=== PATIENT | male | born 1980 | race African-American/Black ===

== ENCOUNTER 2016-04-01 23:05 | Inpatient (IN) | payer OTHER ==
[~2016-04-01] VITALS: Ht 165.1 cm; Wt 61.2 kg
[2016-04-01] MEDS ORDERED: ASPIRIN 81 MG TAB.CHEW PO ONE (23:30)
[2016-04-01] MEDS ORDERED: HYDROCODONE/APAP 5/325MG TABLET. PO ONE (23:30)
[2016-04-01 23:34] LABS: BASO # 0.1 x10^3/uL (0.0-0.2); BASO % 2 % (0-3); EOS % 1 % (0-3); HEMATOCRIT 38.2 % (39.0-53.0); HEMOGLOBIN 12.7 g/dL (13.0-17.5); LYMPH # 1.1 x10^3/uL (1.0-4.8); LYMPH % 35 % (24-48); MEAN CORPUSCULAR HEMOGLOBIN 29 pg (25-35); MEAN CORPUSCULAR HGB CONC 33 g/dL (31-37); MEAN CORPUSCULAR VOLUME 88 fL (79-100); MONO % 17 % (0-9); NEUT % 45 % (31-73); PLATELET COUNT 194 x10^3/uL (140-400); RED BLOOD COUNT 4.36 x10^6/uL (4.30-5.70); RED CELL DISTRIBUTION WIDTH 15.9 % (11.5-14.5); WHITE BLOOD COUNT 3.1 x10^3/uL (4.0-11.0)
[2016-04-02 00:47] LABS: ALBUMIN 2.9 g/dL (3.4-5.0); CALCIUM 8.3 mg/dL (8.5-10.1); CREATININE 0.7 mg/dL (0.7-1.3); DIRECT BILIRUBIN 0.5 mg/dL (0.0-0.2); GFR 153.5; TOTAL PROTEIN 7.3 g/dL (6.4-8.2)
--- NOTE | 2016-04-02 01:20 | PHYS DOC ---
Past Medical History Past Medical History: Hypertension, Seizure, Other Additional Past Medical Histor: heavy etoh use Past Surgical History: No Surgical History Alcohol Use: Heavy Drug Use: None Adult General Chief Complaint Chief Complaint: CHEST PAIN HPI HPI 35-year-old male presenting to the emergency department today with chest pain intermittently for approximately 3 weeks associated with nausea vomiting. 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 He denies any abdominal pain currently. He denies shortness of breath. His chest pain is a tightness that is nonradiating and without alleviating factors. ROS negative for abdominal pain. Positive for nausea vomiting. Negative for diarrhea. Negative for fevers or chills.All other review of systems is negative unless otherwise noted in history of present illness. Review of Systems Review of Systems See above. Current Medications Current Medications Current Medications Medications (Trade) Dose Ordered Sig/Hernán Start Time Stop Time Status Last Admin Dose Admin Acetaminophen/ Hydrocodone Bitart (Lortab 5/325) 2 tab 1X ONCE 04/01/16 23:30 04/01/16 23:31 DC 04/01/16 23:32 2 TAB Aspirin (Children'S Aspirin) 324 mg 1X ONCE 04/01/16 23:30 04/01/16 23:31 DC 04/01/16 23:31 324 MG Allergies Allergies Allergies Coded Allergies Type Severity Reaction Last Updated Verified No Known Drug Allergies 07/04/15 No Physical Exam Physical Exam Constitutional: Well developed, well nourished, no acute distress, non-toxic appearance. HENT: Normocephalic, atraumatic, bilateral external ears normal, oropharynx moist, no oral exudates, nose normal. Eyes: PERRLA, EOMI, conjunctiva normal, no discharge. Neck: Normal range of motion, no tenderness, supple, no stridor. [] Cardiovascular:Heart rate regular rhythm, no murmur [] Lungs & Thorax: Bilateral breath sounds clear to auscultation Abdomen: Soft nontender abdomen without rebound tenderness or guarding present. Negative McBurneys point. Negative Dudley sign. No ecchymosis present. Skin: Warm, dry, no erythema, no rash. Back: No tenderness, no CVA tenderness. [] Extremities: No tenderness, no cyanosis, no clubbing, ROM intact, no edema. [] Neurologic: Alert and oriented X 3, normal motor function, normal sensory function, no focal deficits noted. [] Psychologic: Affect normal, judgement normal, mood normal. Current Patient Data Vital Signs Vital Signs Date Time Temp Pulse Resp B/P Pulse Ox O2 Delivery O2 Flow Rate FiO2 04/01/16 23:32 18 04/01/16 23:17 97.7 89 154/115 97 Room Air 97.7 Lab Values Laboratory Tests Test 04/01/16 23:20 2 00:20 White Blood Count 3.1x10^3/uL (4.0-11.0) L Red Blood Count 4.36x10^6/uL (4.30-5.70) Hemoglobin 12.7g/dL (13.0-17.5) L Hematocrit 38.2% (39.0-53.0) L Mean Corpuscular Volume 88fL (79-100) Mean Corpuscular Hemoglobin 29pg (25-35) Mean Corpuscular Hemoglobin Concent 33g/dL (31-37) Red Cell Distribution Width 15.9% (11.5-14.5) H Platelet Count 194x10^3/uL (140-400) Neutrophils (%) (Auto) 45% (31-73) Lymphocytes (%) (Auto) 35% (24-48) Monocytes (%) (Auto) 17% (0-9) H Eosinophils (%) (Auto) 1% (0-3) Basophils (%) (Auto) 2% (0-3) Neutrophils # (Auto) 1.4x10^3uL (1.8-7.7) L Lymphocytes # (Auto) 1.1x10^3/uL (1.0-4.8) Monocytes # (Auto) 0.5x10^3/uL (0.0-1.1) Eosinophils # (Auto) 0.0x10^3/uL (0.0-0.7) Basophils # (Auto) 0.1x10^3/uL (0.0-0.2) Sodium Level 141mmol/L (136-145) Potassium Level 3.0mmol/L (3.5-5.1) L Chloride Level 103mmol/L (98-107) Carbon Dioxide Level 28mmol/L (21-32) Anion Gap 10 (6-14) Blood Urea Nitrogen 9mg/dL (8-26) Creatinine 0.7mg/dL (0.7-1.3) Estimated GFR (Cockcroft-Gault) 153.5 Glucose Level 91mg/dL (70-99) Calcium Level 8.3mg/dL (8.5-10.1) L Total Bilirubin 1.0mg/dL (0.2-1.0) Direct Bilirubin 0.5mg/dL (0.0-0.2) H Aspartate Amino Transferase (AST) 416U/L (15-37) H Alanine Aminotransferase (ALT) 163U/L (16-63) H Alkaline Phosphatase 204U/L (46-116) H Troponin I Quantitative < 0.017ng/mL (0.000-0.055) HS-Ltj-Y-Type Natriuretic Peptide 150pg/mL (0-124) H Total Protein 7.3g/dL (6.4-8.2) Albumin 2.9g/dL (3.4-5.0) L Lipase 536U/L (73-393) H Laboratory Tests 04/01/16 23:20 Laboratory Tests 04/02/16 00:20 EKG EKG [] EKG shows sinus rhythm with a regular rate. [place] normal. Intervals within normal limits. ST segments congruent. Radiology/Procedures Radiology/Procedures [] Course & Med Decision Making Course & Med Decision Making Pertinent Labs and Imaging studies reviewed. (See chart for details) [] 35-year-old male presenting to the emergency department with chest pain for 3 weeks with nausea and vomiting. On examination the patient was afebrile with mild hypertension. Otherwise vitals unremarkable. Physical exam showed nontender abdomen. EKG unremarkable. Chest x-ray showed no obvious infiltrate or effusion. Blood work obtained which showed mild leukopenia. Hemoglobin mildly anemic. Chemistry panel showed elevation in LFTs with mild bili elevation. Troponin negative. Lipase elevated. The patient's pain was controlled with IV medications. He was placed nothing by mouth and admitted to our hospital for IV fluids, further evaluation, workup and care. Dragon Disclaimer Dragon Disclaimer This electronic medical record was generated, in whole or in part, using a voice recognition dictation system. Departure Departure Impression: Primary Impression: Acute alcoholic pancreatitis Disposition: ADMITTED INPATIENT Admitting Physician: Puneet Patrick Condition: IMPROVED Referrals: UNKNOWN PCP NAME (PCP) Scripts No Active Prescriptions or Reported Meds NIKHIL PARIKH MD Apr 02, 2016 01:20
[2016-04-02] MEDS ORDERED: CONTRAST GIVEN MC PRN (01:30)
[2016-04-02] MEDS ORDERED: HYDROMORPHONE 2 MG/ML VIAL. IV PRN (01:30)
[2016-04-02] MEDS ORDERED: ONDANSETRON PF 4 MG/2 ML VIAL. IV PRN (01:30)
[2016-04-02] MEDS ORDERED: IOHEXOL 300 MG/ML 75 ML VIAL IV ONE (01:30)
[2016-04-02] MEDS ORDERED: MORPHINE SULFATE 2 MG/ML DISP.SYRIN. IV PRN (01:30)
[2016-04-02] MEDS ORDERED: POTASSIUM CHLORIDE 20 MEQ TABLET.ER. PO ONE (01:45)
[2016-04-02] MEDS ORDERED: ONDANSETRON PF 4 MG/2 ML VIAL. IV ONE (01:45)
[2016-04-02] MEDS: IV NORMAL SALINE 1000ML BAG 1,000 ML IV SCH ×3 (02:08→17:30)
--- NOTE | 2016-04-02 02:18 | RAD ---
INDICATION: Nausea and vomiting COMPARISON: None TECHNIQUE: Axial CT images obtained through the abdomen and pelvis. Intravenous contrast was utilized. One or more of the following individualized dose reduction techniques were utilized for this examination: 1. Automated exposure control; 2. Adjustment of the mA and/or kV according to patient size; 3. Use of iterative reconstruction technique. FINDINGS: Abdominal aorta not aneurysmal. No intrahepatic bile duct dilation. Liver is low attenuation. No peripancreatic edema. Spleen unremarkable. Calcified granulomas. No hydronephrosis. No definite evidence of small bowel obstruction. Bladder unremarkable within limits of CT. The appendix does not appear grossly inflamed IMPRESSION: No definite evidence of bowel obstruction. The liver is very low attenuation. Nonspecific but can be seen with fatty infiltration. Other causes such as hepatitis also in differential. The appendix does not appear grossly inflamed but there is a probable appendicolith. Electronically signed by: Cristóbal Lemon (Apr 02, 2016 02:16:06)
[2016-04-02 03:10] VITALS: BP 137/106
[2016-04-02] MEDS ORDERED: mobic (04:10)
--- NOTE | 2016-04-02 06:54 | EKG ---
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
[2016-04-02 07:05] VITALS: BP 136/101
--- NOTE | 2016-04-02 07:48 | RAD ---
Portable chest, 04/01/2016: History: Chest pain and vomiting The heart size and pulmonary vascularity are normal. No pulmonary infiltrates are seen. There is no evidence of pleural fluid. IMPRESSION: No acute cardiopulmonary abnormality is detected.
--- NOTE | 2016-04-02 08:56 | PDOC2 ---
GI CONSULT Reason For Consult: Pancreatitis HPI: HPI: 35 y/o male admitted through the ER reporting 3 weeks of chest pain radiating to his left clavicle w/ "a lot" of n/v. Labs significant for WBC 3.1, Hgb 12.7 , lipase 536, total bili 1, direct bili 0.5, AST 416, ALT 163, Alk Phos 204. CT A/P showed no intrahepatic bile duct dilation w/ low attenuation of the liver , no peripancreatic edema, and probable appendicolith. He was admitted and kept NPO. Currently pain is rated 7/10 (compared to 9/10 on arrival). No nausea. He is in bed with a woman who he says is his friend. Previous admission in 07/2015 for alcohol withdrawal and seizure; tested positive for cocaine at that time and LFTs were elevated. Continues to drink about 1 pint of vodka daily. Now denies drug and tobacco use. Occasional heartburn treated w/ Tums. No diarrhea, constipation, hematemesis, melena, or hematochezia. No previous EGD or colonoscopy. PMH: PMH: substance abuse - alcohol, drugs w/ h/o alcohol withdrawal seizure, HTN FH: Family History: No pertinent hx (denies pancreatitis, GI cancers) Social History: ALCOHOL: heavy (1 pint vodka daily) Drugs: Other (currently denies, previously + for cocaine) ROS: GEN: Denies fevers, chills, sweats HEENT: Denies blurred vision, sore throat CV: +chest pain RESP: Denies shortness of air, cough GI: Per HPI : Denies hematuria, dysuria ENDO: Denies weight changes NEURO: Denies confusion, dizziness MSK: Denies weakness, joint pain/swelling SKIN: Denies jaundice, pruritus VItals: Vitals: Vital Signs Date Time Temp Pulse Resp B/P Pulse Ox O2 Delivery O2 Flow Rate FiO2 04/02/16 07:05 97.7 88 17 136/101 97 Room Air 97.7 Labs: Labs: Laboratory Tests Test 04/01/16 23:20 04/02/16 00:20 White Blood Count 3.1x10^3/uL (4.0-11.0) Red Blood Count 4.36x10^6/uL (4.30-5.70) Hemoglobin 12.7g/dL (13.0-17.5) Hematocrit 38.2% (39.0-53.0) Mean Corpuscular Volume 88fL (79-100) Mean Corpuscular Hemoglobin 29pg (25-35) Mean Corpuscular Hemoglobin Concent 33g/dL (31-37) Red Cell Distribution Width 15.9% (11.5-14.5) Platelet Count 194x10^3/uL (140-400) Neutrophils (%) (Auto) 45% (31-73) Lymphocytes (%) (Auto) 35% (24-48) Monocytes (%) (Auto) 17% (0-9) Eosinophils (%) (Auto) 1% (0-3) Basophils (%) (Auto) 2% (0-3) Neutrophils # (Auto) 1.4x10^3uL (1.8-7.7) Lymphocytes # (Auto) 1.1x10^3/uL (1.0-4.8) Monocytes # (Auto) 0.5x10^3/uL (0.0-1.1) Eosinophils # (Auto) 0.0x10^3/uL (0.0-0.7) Basophils # (Auto) 0.1x10^3/uL (0.0-0.2) Sodium Level 141mmol/L (136-145) Potassium Level 3.0mmol/L (3.5-5.1) Chloride Level 103mmol/L (98-107) Carbon Dioxide Level 28mmol/L (21-32) Anion Gap 10 (6-14) Blood Urea Nitrogen 9mg/dL (8-26) Creatinine 0.7mg/dL (0.7-1.3) Estimated GFR (Cockcroft-Gault) 153.5 Glucose Level 91mg/dL (70-99) Calcium Level 8.3mg/dL (8.5-10.1) Total Bilirubin 1.0mg/dL (0.2-1.0) Direct Bilirubin 0.5mg/dL (0.0-0.2) Aspartate Amino Transf (AST/SGOT) 416U/L (15-37) Alanine Aminotransferase (ALT/SGPT) 163U/L (16-63) Alkaline Phosphatase 204U/L (46-116) Troponin I Quantitative < 0.017ng/mL (0.000-0.055) NA-Kny-M-Type Natriuretic Peptide 150pg/mL (0-124) Total Protein 7.3g/dL (6.4-8.2) Albumin 2.9g/dL (3.4-5.0) Lipase 536U/L (73-393) Allergies: Coded Allergies: No Known Drug Allergies (Unverified , 07/04/15) Medications: Current Medications Medications (Trade) Dose Ordered Sig/Hernán Route PRN Reason Start Time Stop Time Status Last Admin Dose Admin Aspirin (Children'S Aspirin) 324 mg 1X ONCE PO 04/01/16 23:30 04/01/16 23:31 DC 04/01/16 23:31 Acetaminophen/ Hydrocodone Bitart (Lortab 5325) 2 tab 1X ONCE PO 04/01/16 23:30 04/01/16 23:31 DC 04/01/16 23:32 Iohexol (Omnipaque 300 Mg/ml) 75 ml 1X ONCE IV 04/02/16 01:30 04/02/16 01:31 DC 04/02/16 01:19 Morphine Sulfate 2 mg 2 mg PRN Q2HR PRN IV PAIN 04/02/16 01:30 04/03/16 01:29 04/02/16 02:09 Sodium Chloride (Iv Sodium Chloride 0.9% 1000ml Bag) 1,000 ml @ 125 mls/hr Q8H IV 04/02/16 01:30 04/03/16 01:29 04/02/16 02:08 Hydromorphone HCl (Dilaudid) 0.5 mg PRN Q1HR PRN IV SEVERE PAIN 04/02/16 01:30 04/02/16 03:21 Ondansetron HCl (Zofran) 4 mg 1X ONCE IV 04/02/16 01:45 04/02/16 01:46 DC 04/02/16 02:08 Potassium Chloride (Klor-Con) 40 meq 1X ONCE PO 04/02/16 01:45 04/02/16 01:46 DC 04/02/16 02:09 Imaging: Imaging: CT A/P w/ IV contrast IMPRESSION: No definite evidence of bowel obstruction. The liver is very low attenuation. Nonspecific but can be seen with fatty infiltration. Other causes such as hepatitis also in differential. The appendix does not appear grossly inflamed but there is a probable appendicolith. CXR 04/02/16 IMPRESSION: No acute cardiopulmonary abnormality is detected. PE: GEN: NAD HEENT: Atraumatic, PERRL LUNGS: CTAB anteriorly HEART: RRR ABD: NABS, +epigastric tenderness EXTREMITY: No edema SKIN: No rashes, no jaundice NEURO/PSYCH: A & O 3 A/P: A/P: Elevated lipase, epigastric/chest pain, n/v Elevated LFTs Heartburn -occasional, treated w/ antacids (Tums) Substance abuse -h/o alcohol withdrawal seizure -- Will check abd US and hepatic panel, although symptoms and abnormal labs are likely due to alcoholic hepatitis/pancreatitis. Continue medical therapy. JOSE COLEMAN Apr 02, 2016 08:56
[2016-04-02 10:36] VITALS: BP 134/95
--- NOTE | 2016-04-02 11:48 | RAD ---
Abdominal ultrasound, 04/02/2016: History: Epigastric pain, elevated lipase The gallbladder is at the upper limits of normal in size. A small amount of echogenic material is present posteriorly in the gallbladder without posterior acoustic shadowing. The apparent is that of sludge. No gallstones are identified. The gallbladder rush are not thickened. No bile duct dilatation is seen. The liver demonstrates increased echogenicity compatible with fatty change. No hepatic mass is evident. No pancreatic abnormality is detected. The spleen is of normal size. It contains a coarse calcification. The kidneys are unremarkable. The abdominal aorta and inferior vena cava show no abnormality. No free fluid is evident in the abdomen. IMPRESSION: 1. Gallbladder sludge without evidence of cholelithiasis. 2. Hepatic steatosis
[2016-04-02 14:38] VITALS: BP 146/103
[2016-04-02] MEDS ORDERED: POTASSIUM CHLORIDE 20MEQ 50 ML IV SCH (16:30)
[2016-04-02] MEDS: CHLORDIAZEPOXIDE HCL 25 MG CAPSULE PO SCH ×2 (17:02→23:02)
[2016-04-02] MEDS: PANTOPRAZOLE IV PUSH 40 MG VIAL. IVP SCH (17:02)
[2016-04-02] MEDS: MVI, ADULT NO.4 WITH VIT K 10 ML, FOLIC ACID 1 MG, THIAMINE 100 MG in IV NORMAL SALINE ... IV SCH ×4 (17:03)
[2016-04-02] MEDS: POTASSIUM CHLORIDE 10MEQ 100 ML IV SCH ×6 (17:03→23:44)
[2016-04-02] MEDS ORDERED: CYCL10TA2 PO (17:18)
[2016-04-02] MEDS ORDERED: CITA20TA9 PO (17:18)
--- NOTE | 2016-04-02 18:34 | HP ---
ADMIT DATE: 04/02/2016 CHIEF COMPLAINT: Abdominal pain, chest pain. HISTORY OF PRESENT ILLNESS: The patient is a 35-year-old -Citizen Of [place] gentleman who unfortunately drinks chronically admitting to 1 pint of vodka a day. He presented to the Emergency Room with a 2-3 week history of upper abdominal pain as well as chest pain associated with nausea and vomiting. He denies any shortness of breath or cough. Pain is substernally, not radiating to either side. Does have a history of GERD for which he is taking Tums p.r.n. Denies any hematemesis. Denies any diarrhea. In the Emergency Room, he was found with mildly elevated lipase level and was therefore admitted with alcoholic pancreatitis. PAST MEDICAL HISTORY: Recurrent alcohol-induced hepatitis, history of alcoholic withdrawal seizures, multi-substance abuse. FAMILY HISTORY: Brother also alcoholic. SOCIAL HISTORY: Had been living in [place], moved back here with friends, not working, multi-substance abuse including tobacco and other drugs. ALLERGIES: No known drug allergies. MEDICATIONS AT HOME: None. REVIEW OF SYSTEMS: Positive for pain as per HPI. Currently, chest pain is actually fairly well controlled. Denies any other symptoms. PHYSICAL EXAMINATION: VITAL SIGNS: From today show a blood pressure of 146/103, heart rate at 81, respiratory rate at 17. He is afebrile. GENERAL: This is a slim 35-year-old -Citizen [place] gentleman, alert and oriented, in no acute distress. HEENT: Shows no scleral icterus. NECK: Supple. LUNGS: Clear to auscultation bilaterally. HEART: Regular rate and rhythm. ABDOMEN: Has mild tenderness to palpation in the epigastrium to the left upper quadrant. EXTREMITIES: Show no edema. SKIN: Warm, soft and dry without any rash. LABORATORY DATA: CBC with a WBC of 3.1, hemoglobin of 12.7, platelets of 194. Chemistries with a BUN and creatinine of 9 and 0.7, potassium of 3.0. LFT is abnormal with AST of 416, ALT 163, alkaline phosphatase at 204, albumin 2.9. Tox screen positive for cocaine. Alcohol level at 359. ASSESSMENT AND PLAN: The patient is a 35-year-old -Citizen [place] alcoholic presenting with alcoholic hepatitis and pancreatitis. We will admit for symptom control. He will be placed on bowel rest for the time being. We will continue IV fluids. Symptom control via IV. Try to minimize IV narcotics, however. I had a discussion with the patient about ongoing drinking. This clearly is not news to him. I advised him that abstinence is the only way to go. Does smoke significant amount of tobacco as well. We will place on patch. Prophylaxis will be instituted with PPI and Lovenox. Hypokalemia, most likely related to nausea and vomiting. We will repeat IV. For active alcohol abuse and history of alcoholic seizures, we will start CIWA protocol. MIKE NARANJO MD DR: UR/nts JOB#: [id number] / [id number] JEANNINE
[2016-04-02 19:00] VITALS: BP 168/123
[2016-04-02] MEDS: MORPHINE SULFATE 2 MG/ML DISP.SYRIN. IV PRN ×2 (20:45→23:03)
[2016-04-02 22:58] VITALS: BP 183/137
[2016-04-02] MEDS ORDERED: LORAZEPAM 2 MG/ML VIAL IV PRN (23:00)
[2016-04-02] MEDS ORDERED: CALCIUM CARBONATE 500 MG TAB.CHEW PO PRN (23:00)
[2016-04-02] MEDS ORDERED: LIDO:MAALOX:DONNATAL 1:1:1 15 ML SINGLE DOSE SWSW ONE (23:00)
[2016-04-02] MEDS: LABETALOL 20 MG/4 ML DISP.SYRIN. IVP PRN (23:02)
[2016-04-03] VITALS (7 sets, daily range): BP systolic 106–163; BP diastolic 75–120
[2016-04-03 00:10] LABS: HEP A IGM ABDY Negative (Negative)
[2016-04-03] MEDS: POTASSIUM CHLORIDE 10MEQ 100 ML IV SCH ×2 (00:42→01:45)
[2016-04-03] MEDS: POTASSIUM CHLORIDE 30 MEQ in IV 1/2 NORMAL SALINE 1,000 ML IV SCH ×2 (00:43→14:32)
[2016-04-03] MEDS: CHLORDIAZEPOXIDE HCL 25 MG CAPSULE PO SCH ×4 (04:07→22:30)
[2016-04-03] MEDS: LABETALOL 20 MG/4 ML DISP.SYRIN. IVP PRN (04:08)
[2016-04-03 06:00] LABS: BASO % 1 % (0-3); EOS % 2 % (0-3); HEMATOCRIT 35.9 % (39.0-53.0); LYMPH # 0.7 x10^3/uL (1.0-4.8); LYMPH % 20 % (24-48); MEAN CORPUSCULAR HEMOGLOBIN 30 pg (25-35); MEAN CORPUSCULAR HGB CONC 34 g/dL (31-37); MEAN CORPUSCULAR VOLUME 88 fL (79-100); MONO % 23 % (0-9); NEUT % 54 % (31-73); PLATELET COUNT 179 x10^3/uL (140-400); RED BLOOD COUNT 4.07 x10^6/uL (4.30-5.70); RED CELL DISTRIBUTION WIDTH 15.2 % (11.5-14.5); WHITE BLOOD COUNT 3.2 x10^3/uL (4.0-11.0)
[2016-04-03 06:19] LABS: CALCIUM 7.6 mg/dL (8.5-10.1); CREATININE 0.6 mg/dL (0.7-1.3); GFR 183.4; POTASSIUM 3.4 mmol/L (3.5-5.1)
[2016-04-03 06:26] LABS: ALBUMIN 2.8 g/dL (3.4-5.0); DIRECT BILIRUBIN 0.8 mg/dL (0.0-0.2); TOTAL BILIRUBIN 1.9 mg/dL (0.2-1.0); TOTAL PROTEIN 6.8 g/dL (6.4-8.2)
[2016-04-03 07:01] LABS: PLT ESTIMATE ADEQUATE (ADEQUATE)
[2016-04-03] MEDS: PANTOPRAZOLE IV PUSH 40 MG VIAL. IVP SCH (08:44)
[2016-04-03] MEDS: MVI, ADULT NO.4 WITH VIT K 10 ML, FOLIC ACID 1 MG, THIAMINE 100 MG in IV NORMAL SALINE ... IV SCH ×4 (08:48)
--- NOTE | 2016-04-03 08:51 | PDOC ---
PROGRESS NOTES Chief Complaint Chief Complaint EtOH pancreatitis ASSESSMENT AND PLAN: 1. Pancreatitis: EtOH induced. lipase normalizing, pain much improved. cautiously advance diet 2. Hepatitis: EtOH induced. improved by labs. monitor 3. Gastritis: EtOH induced. on PPI, switch to PO 4. Hypokalemia: improved. continue IV repletion 5. Etoh abuse: banana bag 6. ETOH W/D: Librium protocol Prophylaxis: lovenox Does smoke significant amount of tobacco as well. We will place on patch. Prophylaxis will be instituted with PPI and Lovenox. Hypokalemia, most likely related to nausea and vomiting. We will repeat IV. For active alcohol abuse and history of alcoholic seizures, we will start CIWA protocol. Vitals Vitals Vital Signs Date Time Temp Pulse Resp B/P Pulse Ox O2 Delivery O2 Flow Rate FiO2 04/03/16 07:00 97.5 67 18 135/101 96 Room Air 97.5 Physical Exam Physical Exam hand tremors General: Alert, Cooperative, No acute distress Heart: Regular rate Lungs: Clear Abdomen: Normal bowel sounds Extremities: No edema Skin: No rashes Labs LABS Laboratory Tests Test 04/03/16 05:10 White Blood Count 3.2x10^3/uL (4.0-11.0) Red Blood Count 4.07x10^6/uL (4.30-5.70) Hemoglobin 12.0g/dL (13.0-17.5) Hematocrit 35.9% (39.0-53.0) Mean Corpuscular Volume 88fL (79-100) Mean Corpuscular Hemoglobin 30pg (25-35) Mean Corpuscular Hemoglobin Concent 34g/dL (31-37) Red Cell Distribution Width 15.2% (11.5-14.5) Platelet Count 179x10^3/uL (140-400) Neutrophils (%) (Auto) 54% (31-73) Lymphocytes (%) (Auto) 20% (24-48) Monocytes (%) (Auto) 23% (0-9) Eosinophils (%) (Auto) 2% (0-3) Basophils (%) (Auto) 1% (0-3) Neutrophils # (Auto) 1.7x10^3uL (1.8-7.7) Lymphocytes # (Auto) 0.7x10^3/uL (1.0-4.8) Monocytes # (Auto) 0.8x10^3/uL (0.0-1.1) Eosinophils # (Auto) 0.1x10^3/uL (0.0-0.7) Basophils # (Auto) 0.0x10^3/uL (0.0-0.2) Segmented Neutrophils % 61% (35-66) Lymphocytes % 25% (24-48) Monocytes % 14% (0-10) Platelet Estimate Adequate (ADEQUATE) Sodium Level 135mmol/L (136-145) Potassium Level 3.4mmol/L (3.5-5.1) Chloride Level 98mmol/L (98-107) Carbon Dioxide Level 28mmol/L (21-32) Anion Gap 9 (6-14) Blood Urea Nitrogen 4mg/dL (8-26) Creatinine 0.6mg/dL (0.7-1.3) Estimated GFR (Cockcroft-Gault) 183.4 Glucose Level 87mg/dL (70-99) Calcium Level 7.6mg/dL (8.5-10.1) Total Bilirubin 1.9mg/dL (0.2-1.0) Direct Bilirubin 0.8mg/dL (0.0-0.2) Aspartate Amino Transf (AST/SGOT) 298U/L (15-37) Alanine Aminotransferase (ALT/SGPT) 129U/L (16-63) Alkaline Phosphatase 194U/L (46-116) Total Protein 6.8g/dL (6.4-8.2) Albumin 2.8g/dL (3.4-5.0) Review of Systems Review of Systems hung. no abd pain or nausea Comment Labs Laboratory Tests Test 04/01/16 23:20 04/02/16 00:20 04/03/16 05:10 White Blood Count 3.1x10^3/uL (4.0-11.0) 3.2x10^3/uL (4.0-11.0) Red Blood Count 4.36x10^6/uL (4.30-5.70) 4.07x10^6/uL (4.30-5.70) Hemoglobin 12.7g/dL (13.0-17.5) 12.0g/dL (13.0-17.5) Hematocrit 38.2% (39.0-53.0) 35.9% (39.0-53.0) Mean Corpuscular Volume 88fL (79-100) 88fL (79-100) Mean Corpuscular Hemoglobin 29pg (25-35) 30pg (25-35) Mean Corpuscular Hemoglobin Concent 33g/dL (31-37) 34g/dL (31-37) Red Cell Distribution Width 15.9% (11.5-14.5) 15.2% (11.5-14.5) Platelet Count 194x10^3/uL (140-400) 179x10^3/uL (140-400) Neutrophils (%) (Auto) 45% (31-73) 54% (31-73) Lymphocytes (%) (Auto) 35% (24-48) 20% (24-48) Monocytes (%) (Auto) 17% (0-9) 23% (0-9) Eosinophils (%) (Auto) 1% (0-3) 2% (0-3) Basophils (%) (Auto) 2% (0-3) 1% (0-3) Neutrophils # (Auto) 1.4x10^3uL (1.8-7.7) 1.7x10^3uL (1.8-7.7) Lymphocytes # (Auto) 1.1x10^3/uL (1.0-4.8) 0.7x10^3/uL (1.0-4.8) Monocytes # (Auto) 0.5x10^3/uL (0.0-1.1) 0.8x10^3/uL (0.0-1.1) Eosinophils # (Auto) 0.0x10^3/uL (0.0-0.7) 0.1x10^3/uL (0.0-0.7) Basophils # (Auto) 0.1x10^3/uL (0.0-0.2) 0.0x10^3/uL (0.0-0.2) Sodium Level 141mmol/L (136-145) 135mmol/L (136-145) Potassium Level 3.0mmol/L (3.5-5.1) 3.4mmol/L (3.5-5.1) Chloride Level 103mmol/L (98-107) 98mmol/L (98-107) Carbon Dioxide Level 28mmol/L (21-32) 28mmol/L (21-32) Anion Gap 10 (6-14) 9 (6-14) Blood Urea Nitrogen 9mg/dL (8-26) 4mg/dL (8-26) Creatinine 0.7mg/dL (0.7-1.3) 0.6mg/dL (0.7-1.3) Estimated GFR (Cockcroft-Gault) 153.5 183.4 Glucose Level 91mg/dL (70-99) 87mg/dL (70-99) Calcium Level 8.3mg/dL (8.5-10.1) 7.6mg/dL (8.5-10.1) Total Bilirubin 1.0mg/dL (0.2-1.0) 1.9mg/dL (0.2-1.0) Direct Bilirubin 0.5mg/dL (0.0-0.2) 0.8mg/dL (0.0-0.2) Aspartate Amino Transf (AST/SGOT) 416U/L (15-37) 298U/L (15-37) Alanine Aminotransferase (ALT/SGPT) 163U/L (16-63) 129U/L (16-63) Alkaline Phosphatase 204U/L (46-116) 194U/L (46-116) Troponin I Quantitative < 0.017ng/mL (0.000-0.055) BH-Ree-A-Type Natriuretic Peptide 150pg/mL (0-124) Total Protein 7.3g/dL (6.4-8.2) 6.8g/dL (6.4-8.2) Albumin 2.9g/dL (3.4-5.0) 2.8g/dL (3.4-5.0) Lipase 536U/L (73-393) Hepatitis A IgM Antibody Negative (Negative) Hepatitis B Surface Antigen Negative (Negative) Hepatitis B Core IgM Antibody Negative (Negative) Hepatitis C Antibody <0.1s/co ratio (0.0-0.9) Segmented Neutrophils % 61% (35-66) Lymphocytes % 25% (24-48) Monocytes % 14% (0-10) Platelet Estimate Adequate (ADEQUATE) Laboratory Tests Test 04/03/16 05:10 White Blood Count 3.2x10^3/uL (4.0-11.0) Red Blood Count 4.07x10^6/uL (4.30-5.70) Hemoglobin 12.0g/dL (13.0-17.5) Hematocrit 35.9% (39.0-53.0) Mean Corpuscular Volume 88fL (79-100) Mean Corpuscular Hemoglobin 30pg (25-35) Mean Corpuscular Hemoglobin Concent 34g/dL (31-37) Red Cell Distribution Width 15.2% (11.5-14.5) Platelet Count 179x10^3/uL (140-400) Neutrophils (%) (Auto) 54% (31-73) Lymphocytes (%) (Auto) 20% (24-48) Monocytes (%) (Auto) 23% (0-9) Eosinophils (%) (Auto) 2% (0-3) Basophils (%) (Auto) 1% (0-3) Neutrophils # (Auto) 1.7x10^3uL (1.8-7.7) Lymphocytes # (Auto) 0.7x10^3/uL (1.0-4.8) Monocytes # (Auto) 0.8x10^3/uL (0.0-1.1) Eosinophils # (Auto) 0.1x10^3/uL (0.0-0.7) Basophils # (Auto) 0.0x10^3/uL (0.0-0.2) Segmented Neutrophils % 61% (35-66) Lymphocytes % 25% (24-48) Monocytes % 14% (0-10) Platelet Estimate Adequate (ADEQUATE) Sodium Level 135mmol/L (136-145) Potassium Level 3.4mmol/L (3.5-5.1) Chloride Level 98mmol/L (98-107) Carbon Dioxide Level 28mmol/L (21-32) Anion Gap 9 (6-14) Blood Urea Nitrogen 4mg/dL (8-26) Creatinine 0.6mg/dL (0.7-1.3) Estimated GFR (Cockcroft-Gault) 183.4 Glucose Level 87mg/dL (70-99) Calcium Level 7.6mg/dL (8.5-10.1) Total Bilirubin 1.9mg/dL (0.2-1.0) Direct Bilirubin 0.8mg/dL (0.0-0.2) Aspartate Amino Transf (AST/SGOT) 298U/L (15-37) Alanine Aminotransferase (ALT/SGPT) 129U/L (16-63) Alkaline Phosphatase 194U/L (46-116) Total Protein 6.8g/dL (6.4-8.2) Albumin 2.8g/dL (3.4-5.0) Vitals/I & O Vital Sign - Last 24 Hours 04/02/16 04/02/16 04/02/16 04/02/16 10:36 14:38 19:00 20:00 Temp 97.7 98.1 99.1 97.7 98.1 99.1 Pulse 84 81 85 Resp 17 17 20 B/P 134/95 146/103 168/123 Pulse Ox 95 97 97 O2 Delivery Room Air Room Air Room Air Room Air 04/02/16 04/02/16 04/02/16 04/03/16 20:45 22:58 23:02 03:00 Temp 98.1 97.9 98.1 97.9 Pulse 87 87 78 Resp 18 24 22 B/P 183/137 183/137 163/120 Pulse Ox 96 97 O2 Delivery Room Air Room Air 04/03/16 04/03/16 04/03/16 04:08 06:09 07:00 Temp 97.5 97.5 Pulse 78 67 Resp 18 B/P 163/120 139/106 135/101 Pulse Ox 96 O2 Delivery Room Air Intake and Output 04/02/16 04/02/16 04/03/16 15:00 23:00 07:00 Intake Total 0 ml 0 ml Output Total 500 ml 850 ml 1600 ml Balance -500 ml -850 ml -1600 ml MIKE NARANJO MD Apr 03, 2016 08:50
[2016-04-03] MEDS ORDERED: ACETAMINOPHEN 325 MG TABLET. PO PRN (09:45)
[2016-04-03] MEDS ORDERED: CALCIUM CARBONATE 500 MG TAB.CHEW PO PRN (12:15)
--- NOTE | 2016-04-03 12:16 | PDOC ---
Subjective: Subjective: Feeling better. Hungry. Had some chest pain radiating to jaw overnight - felt a bit like reflux and was improved w/ Tums and GI cocktail. Objective: Objective: Per RN - CP overnight, no c/o abd pain today. Vital Signs: Vital Signs Date Time Temp Pulse Resp B/P Pulse Ox O2 Delivery O2 Flow Rate FiO2 04/03/16 11:00 98.1 67 18 125/95 100 98.1 04/03/16 08:00 Room Air Labs: Laboratory Tests Test 04/03/16 05:10 White Blood Count 3.2x10^3/uL Red Blood Count 4.07x10^6/uL Hemoglobin 12.0g/dL Hematocrit 35.9% Mean Corpuscular Volume 88fL Mean Corpuscular Hemoglobin 30pg Mean Corpuscular Hemoglobin Concent 34g/dL Red Cell Distribution Width 15.2% Platelet Count 179x10^3/uL Neutrophils (%) (Auto) 54% Lymphocytes (%) (Auto) 20% Monocytes (%) (Auto) 23% Eosinophils (%) (Auto) 2% Basophils (%) (Auto) 1% Neutrophils # (Auto) 1.7x10^3uL Lymphocytes # (Auto) 0.7x10^3/uL Monocytes # (Auto) 0.8x10^3/uL Eosinophils # (Auto) 0.1x10^3/uL Basophils # (Auto) 0.0x10^3/uL Segmented Neutrophils % 61% Lymphocytes % 25% Monocytes % 14% Platelet Estimate Adequate Sodium Level 135mmol/L Potassium Level 3.4mmol/L Chloride Level 98mmol/L Carbon Dioxide Level 28mmol/L Anion Gap 9 Blood Urea Nitrogen 4mg/dL Creatinine 0.6mg/dL Estimated GFR (Cockcroft-Gault) 183.4 Glucose Level 87mg/dL Calcium Level 7.6mg/dL Total Bilirubin 1.9mg/dL Direct Bilirubin 0.8mg/dL Aspartate Amino Transf (AST/SGOT) 298U/L Alanine Aminotransferase (ALT/SGPT) 129U/L Alkaline Phosphatase 194U/L Total Protein 6.8g/dL Albumin 2.8g/dL Lipase 228U/L Imaging: Abd US 04/02/16 IMPRESSION: 1. Gallbladder sludge without evidence of cholelithiasis. 2. Hepatic steatosis. PE: GEN: NAD LUNGS: CTAB HEART: RRR ABD: NABS, S/ND/NT NEURO/PSYCH: A & O 3 A/P: Epigastric/chest pain, n/v - improved -has some chest pain to jaw overnight, improved w/ Tums and GI cocktail Elevated lipase - resolved Elevated LFTs -Hep panel neg -hepatic steatosis on US, along w/ gallbladder sludge -h/o alcohol/substance abuse - likely cause Heartburn -previously treated w/ Tums PRN -on PPI here -- Try clears liquids, ADAT - d/w RN. Change to PO PPI, Tums okay PRN. JOSE COLEMAN Apr 03, 2016 12:16
[2016-04-04] MEDS: POTASSIUM CHLORIDE 30 MEQ in IV 1/2 NORMAL SALINE 1,000 ML IV SCH (00:13)
[2016-04-04 03:00] VITALS: BP 131/94
[2016-04-04 07:15] VITALS: BP 128/98
[2016-04-04] MEDS ORDERED: PANTOPRAZOLE 40 MG TABLET. PO SCH (07:30)
[2016-04-04] MEDS: MVI, ADULT NO.4 WITH VIT K 10 ML, FOLIC ACID 1 MG, THIAMINE 100 MG in IV NORMAL SALINE ... IV SCH ×4 (09:00)
--- NOTE | 2016-04-04 09:22 | PDOC ---
Subjective: Subjective: Tolerating solid foods w/o abd pain, n/v. Ready to DC. Now relates he has daily heartburn and was taking Tums 3-4 times daily. Objective: Vital Signs: Vital Signs Date Time Temp Pulse Resp B/P Pulse Ox O2 Delivery O2 Flow Rate FiO2 04/04/16 07:15 98.1 80 16 128/98 100 Room Air 98.1 PE: GEN: NAD LUNGS: CTAB HEART: RRR ABD: NABS, S/ND/NT NEURO/PSYCH: A & O 3 A/P: Epigastric/chest pain, n/v - resolved Elevated lipase - resolved Elevated LFTs -Hep panel neg; hepatic steatosis on US, along w/ gallbladder sludge -h/o alcohol/substance abuse - likely cause Heartburn -previously treated w/ Tums PRN, on PPI here -- Symptoms resolved, tolerating diet. DC per primary. Avoid alcohol. Continue PPI QD. Consider EGD if heartburn continues. JOSE COLEMAN Apr 04, 2016 09:22
[2016-04-04 11:00] VITALS: BP 134/94
--- NOTE | 2016-04-04 14:24 | PDOC ---
PROGRESS NOTES Chief Complaint Chief Complaint EtOH pancreatitis ASSESSMENT AND PLAN: 1. Pancreatitis: EtOH induced. lipase normalizing, pain much improved. tolarating diet 2. Hepatitis: EtOH induced. improved by labs. monitor 3. Gastritis: EtOH induced. on PPI, switch to PO 4. Hypokalemia: improved. continue IV repletion 5. Etoh abuse: banana bag 6. ETOH W/D: Librium protocol Prophylaxis: lovenox 7. Dispo: D/C home Vitals Vitals Vital Signs Date Time Temp Pulse Resp B/P Pulse Ox O2 Delivery O2 Flow Rate FiO2 04/04/16 11:00 98.8 84 18 134/94 98 Room Air 98.8 Physical Exam Physical Exam hand tremors General: Alert, Cooperative, No acute distress Heart: Regular rate Lungs: Clear Abdomen: Normal bowel sounds Extremities: No edema Skin: No rashes Review of Systems Review of Systems in good spirits. minimal abd pain MIKE NARANJO MD Apr 04, 2016 14:24
[2016-04-04 15:15] VITALS: BP 143/99
[2016-04-04] MEDS ORDERED: PANT40TA3 PO (17:03)
--- NOTE | 2016-04-06 22:13 | DS ---
DATE OF DISCHARGE: 04/04/2016 CHIEF COMPLAINT: Alcoholic pancreatitis. HOSPITAL COURSE: The patient is a 35-year-old gentleman who has a history of alcoholic pancreatitis and ongoing alcohol abuse who presented with symptoms of recurrent pancreatitis, which actually improved fairly quickly by lipase measurements as well as clinical symptoms. He also had alcohol-induced hepatitis and gastritis, which were treated conservatively. He did receive PPI for gastritis. For his alcohol withdrawal; a Librium protocol was instituted which he tolerated without any problems. At time of discharge, he was doing well. DISCHARGE PHYSICAL EXAMINATION: Please refer to note from same day, discharge date 04/04/2016. DISCHARGE DISPOSITION: To home. DISCHARGE CONDITION: improved DISCHARGE DIAGNOSIS: Alcoholic pancreatitis. DISCHARGE MEDICATIONS: Please refer to MAR. DISCHARGE INSTRUCTIONS: The patient is to follow up with his PCP in one to two weeks. MIKE NARANJO MD DR: UR/nts JOB#: [id number] / [id number] JEANNINE
== END 2016-04-04 18:25 | disposition home or self-care (01) | DRG 438 ==
LOC: ER 23:05 → OBSVTOIN 04-02 01:26 → 6 SOUTH 04-02 01:26
PROVIDERS: ADMIT Internal Medicine; ATTEND Internal Medicine
DX: K85.20 Alcohol induced acute pancreatitis without necrosis or infection (principal); R65.11 Systemic inflammatory response syndrome (SIRS) of non-infectious origin with acute organ dysfunction; F10.239 Alcohol dependence with withdrawal, unspecified; E44.1 Mild protein-calorie malnutrition; E87.6 Hypokalemia; F17.200 Nicotine dependence, unspecified, uncomplicated; I10 Essential (primary) hypertension; K21.9 Gastro-esophageal reflux disease without esophagitis; K29.20 Alcoholic gastritis without bleeding; K70.10 Alcoholic hepatitis without ascites; K86.1 Other chronic pancreatitis; R56.9 Unspecified convulsions; D64.9 Anemia, unspecified
CPT/HCPCS: 36415; 71010; 74177; 76700; 80048; 80074; 80076; 83690; 83880; 84484; 85007; 85027; 93005; 96374; 96375; C9113; J1170; J2270; J2405; J3480; J3490; J7030; Q9967; 99285-25

== ENCOUNTER 2020-03-28 13:52 | Emergency (ER) | payer OTHER ==
[~2020-03-28] VITALS: Ht 165.1 cm; Wt 61.3 kg
[~2020-03-28 13:52] MED LIST: CITA20TA9 PO; CYCL10TA2 PO; PANT40TA77 PO; mobic
[2020-03-28 14:05] VITALS: BP 134/102
--- NOTE | 2020-03-28 15:01 | RAD ---
CT HEAD WITHOUT CONTRAST 03/28/2020 2:37 PM Indication: Reason: dizziness / Spl. Instructions: / History: Comparison: CT head without contrast August 12, 2015 Procedure: Multidetector CT imaging of the head was performed without the administration of contrast. Findings: There is no evidence of acute intracranial hemorrhage. There is no evidence of acute territ orial infarction. Please note that CT is limited for evaluation of acute ischemia. No mass effect or midline shift is identified . The ventricles and basilar cisterns have an appropriate appearance. No abnormal extra-axial fluid collections are seen. No acute osseous changes are identified. Impression: No evidence of acute intracranial abnormality CT DOSING PQRS STATEMENT: One or more of the following individualized dose reduction techniques were utilized for this examinat ion: 1. Automated exposure control 2. Adjustment of the mA and/or kV according to patient size 3. Use of iterative reconstruction technique Electronically signed by: Oni Huang MD (03/28/2020 2:59 PM) [id number]
--- NOTE | 2020-03-28 15:17 | PHYS DOC ---
Past Medical History Past Medical History: Alcoholism, Anxiety, Depression, Hypertension, Seizure Additional Past Medical Histor: heavy etoh use Past Surgical History: No Surgical History Smoking Status: Never Smoker Alcohol Use: Occasionally Additional Information: REPORTS PT USED TO BE A HEAVY ETOH DRINKER Drug Use: None General Adult EDM: Chief Complaint: HEADACHE HPI: HPI: Patient is a 39 year old male with history of seizures, hypertension, anxiety, depression, alcohol abuse, who presents to the ED today requesting a CT of the head. Patient states he has had intermittent episodes of 4 out of 10 generalized headache described as electricity shooting in the head, symptoms for 6 days. Denies any nausea vomiting, denies any fever. Denies anything specifically exacerbating his symptoms but reports has been taking a couple shots of alcohol and beer daily which has helped with his headaches. He last drunk 2 shots prior to coming to the Ed. [facility] come to in the [facility] and get a CT of the head. He is refusing any further work-up. Review of Systems: Review of Systems: Constitutional: Denies fever or chills. [] Eyes: Denies change in visual acuity. [] HENT: Denies nasal congestion or sore throat. [] Respiratory: Denies cough or shortness of breath. [] Cardiovascular: Denies chest pain or edema. [] GI: Denies abdominal pain, nausea, vomiting, bloody stools or diarrhea. [] : Denies dysuria. [] Musculoskeletal: Denies back pain or joint pain. [] Integument: Denies rash. [] Neurologic: Reports headache, denies focal weakness or sensory changes. [] Psychiatric: Reports alcohol use Heart Score: Risk Factors: Risk Factors: DM, Current or recent (<one month) smoker, HTN, HLP, family history of CAD, obesity. Risk Scores: Score 0 - 3: 2.5% MACE over next 6 weeks - Discharge Home Score 4 - 6: 20.3% MACE over next 6 weeks - Admit for Clinical Observation Score 7 - 10: 72.7% MACE over next 6 weeks - Early Invasive Strategies Allergies: Allergies: Allergies Coded Allergies Type Severity Reaction Last Updated Verified No Known Drug Allergies 07/04/15 No Physical Exam: PE: Constitutional: Appears older than the stated age, no acute distress, non-toxic appearance. [] HENT: Normocephalic, atraumatic, bilateral external ears normal, oropharynx moist, no oral exudates, nose normal. [] Eyes: PERRLA, EOMI, conjunctiva normal, no discharge. [] Neck: Normal range of motion, no tenderness, supple, no stridor. [] Cardiovascular:Heart rate regular rhythm, no murmur [] Lungs & Thorax: Bilateral breath sounds clear to auscultation [] Abdomen: Bowel sounds normal, soft, no tenderness, no masses, no pulsatile masses. [] Skin: Warm, dry, no erythema, no rash. [] Back: No tenderness, no CVA tenderness. [] Extremities: No tenderness, no cyanosis, no clubbing, ROM intact, no edema. [] Neurologic: Alert and oriented X 3, normal motor function, normal sensory function, no focal deficits noted. Cranial nerves II through XII intact Psychologic: Flat affect Current Patient Data: Vital Signs: Vital Signs Date Time Temp Pulse Resp B/P (MAP) Pulse Ox O2 Delivery O2 Flow Rate FiO2 03/28/20 14:05 97.4 94 18 134/102 (113) 96 Room Air 97.4 EKG: EKG: [] Radiology/Procedures: Radiology/Procedures: []PROCEDURE: CT HEAD WO CONTRAST CT HEAD WITHOUT CONTRAST 03/28/2020 2:37 PM Indication: Reason: dizziness / Spl. Instructions: / History: Comparison: CT head without contrast August 12, 2015 Procedure: Multidetector CT imaging of the head was performed without the administration of contrast. Findings: There is no evidence of acute intracranial hemorrhage. There is no evidence of acute territorial infarction. Please note that CT is limited for evaluation of acute ischemia. No mass effect or midline shift is identified . The ventricles and basilar cisterns have an appropriate appearance. No abnormal extra-axial fluid collections are seen. No acute osseous changes are identified. Impression: No evidence of acute intracranial abnormality CT DOSING PQRS STATEMENT: One or more of the following individualized dose reduction techniques were utilized for this examination: 1. Automated exposure control 2. Adjustment of the mA and/or kV according to patient size 3. Use of iterative reconstruction technique Electronically signed by: Oni Simmons MD (03/28/2020 2:59 PM) [id number] DICTATED and SIGNED BY: ONI SIMMONS MD DATE: 03/28/20 [id number] Course & Med Decision Making: Course & Med Decision Making Pertinent Labs and Imaging studies reviewed. (See chart for details) This is a 39-year-old male patient presented to the ED today complaining of headache intermittently for 6 days. Patient states [facility] only. Refusing any further work-up. CT of the head is negative. Blood pressure 132/102 HR 94, he states he has history of hypertension and chooses not to take his medicines discharged to home. He states he will [facility] with the [facility]. Dragon Disclaimer: Dragon Disclaimer: This electronic medical record was generated, in whole or in part, using a voice recognition dictation system. Departure Departure Impression: Primary Impression: Headache Qualified Codes: R51.9 - Headache, unspecified Additional Impressions: ETOHism High blood pressure Qualified Codes: I10 - Essential (primary) hypertension Disposition: 01 DC HOME SELF CARE/HOMELESS Condition: STABLE Referrals: UNKNOWN PCP NAME (PCP) follow up with your doctor in 1-2 weeks Patient Instructions: Headache, FAQs, Hypertension Additional Instructions: You were evaluated in the emergency room for headaches, your CAT scan of the head is negative for any acute findings. Please ensure you are taking you medicines and follow[facility]. Consider getting help for alcohol use. LULÚ JOHN APRN Mar 28, 2020 15:17
== END 2020-03-28 15:30 | disposition home or self-care (01) ==
LOC: ER 13:52
DX: R51.9 Headache, unspecified (principal); I10 Essential (primary) hypertension; F41.9 Anxiety disorder, unspecified; F32.9 Major depressive disorder, single episode, unspecified; F10.20 Alcohol dependence, uncomplicated; Y90.9 Presence of alcohol in blood, level not specified
CPT/HCPCS: 70450; 99284-25